=== PATIENT | female | born 1995 | race Caucasian/White ===

== ENCOUNTER 2016-10-05 23:25 | Outpatient (CLI) | payer MEDICAID | END 2016-10-06 01:58 | disposition home or self-care (01) | LOC: MW.OBCHECK 23:25 → MW.OB 23:25 → MW.OBCHECK 10-06 01:58 | PROVIDERS: ATTEND Obstetrics & Gynecology | DX: O26.893 Other specified pregnancy related conditions, third trimester (principal); R10.9 Unspecified abdominal pain | CPT/HCPCS: 59025 ==

== ENCOUNTER 2016-10-13 21:55 | Inpatient (IN) | payer BC, MEDICAID ==
[2016-10-13] MEDS ORDERED: Sodium Chloride 0.9% 2.5 ML Syringe FLUSH PRN (22:08)
[2016-10-13] MEDS ORDERED: Terbutaline 1 MG/ML SDV SUBCUT PRN (22:08)
[2016-10-13] MEDS ORDERED: Lidocaine 1% 50 ML MDV INJECT PRN (22:08)
[2016-10-13] MEDS ORDERED: Nalbuphine 10 MG/1 ML Vial IVPUSH PRN (22:08)
[2016-10-13] MEDS ORDERED: Methylergonovine 0.2 MG/1 ML Amp IM PRN (22:08)
[2016-10-13] MEDS ORDERED: Sodium Chloride 0.9% 10 ML Syringe FLUSH PRN (22:08)
[2016-10-13] MEDS ORDERED: Butorphanol 1 MG/ML SDV IVPUSH PRN (22:08)
[2016-10-13] MEDS ORDERED: Misoprostol 200 MCG Tab PO PRN (22:08)
[2016-10-13] MEDS ORDERED: Carboprost Tromethamine 250 MCG/1 ML Amp IM PRN (22:08)
[2016-10-13] MEDS ORDERED: Water For Irrigation,Sterile 1,000 ML Container IRR PRN (22:08)
[2016-10-13] MEDS ORDERED: Oxytocin/Lactated Ringers 30 UNIT/500 ML BAG IV SCH ×2 (22:15)
[2016-10-13] MEDS ORDERED: Misoprostol 25 MCG (1/4 of 100 MCG) Tab VAG SCH (22:15)
[2016-10-14] MEDS: Misoprostol 25 MCG (1/4 of 100 MCG) Tab VAG PRN ×2 (04:01→08:12)
[2016-10-14] MEDS: Lactated Ringers 1,000 ML IV SCH ×2 (12:43→15:05)
[2016-10-14] MEDS ORDERED: fentaNYL 100 MCG/2 ML SDV ONE (14:37)
[2016-10-14] MEDS ORDERED: Ropivacaine HCl/PF 100 ML ONE ×2 (14:38→22:40)
--- NOTE | 2016-10-14 15:38 | PCM.PREANE ---
Preanesthetic Assessment - Anesthesia/Transfusion/Family Hx Anesthesia History: Prior Anesthesia Without Reaction Family History of Anesthesia Reaction: No Transfusion History: No Prior Transfusion(s) Intubation History: Unknown - Review of Systems General: No Symptoms Pulmonary: No Symptoms Cardiovascular: No Symptoms Gastrointestinal: No symptoms Neurological: No Symptoms Other: Reports: Anxiety - Physical Assessment NPO Status Date: 10/14/16 NPO Status Time: 15:36 (sips/chips) Height: 5 ft 8 in Weight: 223 lb ASA Class: 2 Mental Status: Alert & Oriented x3 Airway Class: Mallampati = 2 Dentition: Reports: Normal Dentition Thyro-Mental Finger Breadths: 3 Mouth Opening Finger Breadths: 3 ROM/Head Extension: Full Lungs: Clear to auscultation, Normal respiratory effort Cardiovascular: Regular Rate, Regular Rhythm - Lab Values: Laboratory Last Values WBC 15.76 K/uL (4.0-11.0) H 10/13/16 22:33 RBC 3.57 M/uL (4.30-5.90) L 10/13/16 22:33 Hgb 9.9 g/dL (12.0-16.0) L 10/13/16 22:33 Hct 30.0 % (36.0-46.0) L 10/13/16 22:33 MCV 84.0 fL (80.0-98.0) 10/13/16 22:33 MCH 27.7 pg (27.0-32.0) 10/13/16 22:33 MCHC 33.0 g/dL (31.0-37.0) 10/13/16 22:33 RDW Std Deviation 43.8 fl (28.0-62.0) 10/13/16 22:33 RDW Coeff of Manan 14 % (11.0-15.0) 10/13/16 22:33 Plt Count 272 K/uL (150-400) 10/13/16 22:33 MPV 10.10 fL (7.40-12.00) 10/13/16 22:33 Nucleated RBC % 0.0 /100WBC 10/13/16 22:33 Nucleated RBCs # 0 K/uL 10/13/16 22:33 Blood Type O POSITIVE 10/13/16 22:33 Antibody Screen NEGATIVE 10/13/16 22:33 - Allergies Allergies/Adverse Reactions: Allergies Allergy/AdvReac Type Severity Reaction Status Date / Time No Known Allergies Allergy Verified 11/25/15 20:00 - Blood Blood Available: No Product(s) Available: None - Anesthesia Plan Free Text/Narrative:: Labor Epidural - Acknowledgements Anesthesia Type Planned: Epidural Pt an Appropriate Candidate for the Planned Anesthesia: Yes Alternatives and Risks of Anesthesia Discussed w Pt/Guardian: Yes Pt/Guardian Understands and Agrees with Anesthesia Plan: Yes PreAnesthesia Questionnaire HEENT History: Reports: None Cardiovascular History: Reports: None Respiratory History: Reports: None Gastrointestinal History: Reports: None Genitourinary History: Reports: None 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 Musculoskeletal History: Reports: None Neurological History: Reports: None Psychiatric History: Reports: Anxiety, Depression Endocrine/Metabolic History: Reports: None, Obesity/BMI 30+ Hematologic History: Reports: None Immunologic History: Reports: None Oncologic (Cancer) History: Reports: None Dermatologic History: Reports: None - Infectious Disease History Infectious Disease History: Reports: Mononucleosis - Past Surgical History Head Surgeries/Procedures: Reports: None HEENT Surgical History: Reports: Adenoidectomy, Oral surgery, Tonsillectomy Dermatological Surgical History: Reports: None - SUBSTANCE USE Smoking Status *Q: Former Smoker Tobacco Use Within Last Twelve Months: Cigarettes Second Hand Smoke Exposure: Yes Recreational Drug Use History: No - HOME MEDS Home Medications: Home Meds . [No Known Home Meds] 11/25/15 [History] - CURRENT (IN HOUSE) MEDS Current Meds: Current Medications Butorphanol Tartrate (Stadol) 1 mg IVPUSH Q1H PRN PRN Reason: Pain Carboprost Tromethamine (Hemabate Ds) 250 mcg IM ASDIRECTED PRN PRN Reason: Post Hemorrhage Lactated Ringer's (Ringers, Lactated) 1,000 mls @ 150 mls/hr IV ASDIRECTED MOY Last Admin: 10/14/16 15:05 Dose: 999 mls/hr Oxytocin/Lactated Ringer's (Pitocin In Lr 30 Units/500 Ml) 30 unit in 500 mls @ 2 mls/hr IV TITRATE MOY; 2 MUNITS/MIN PRN Reason: Protocol Last Titration: 10/14/16 15:20 Dose: 6 munits/min, 6 mls/hr Lidocaine HCl (Xylocaine 1%) 50 ml INJECT .ONCE PRN PRN Reason: Laceration repair Methylergonovine Maleate (Methergine) 0.2 mg IM ASDIRECTED PRN PRN Reason: Post Hemorrhage Misoprostol (Cytotec) 200 mcg PO .ONCE PRN PRN Reason: Post Hemorrhage Misoprostol (Cytotec) 25 mcg VAG .ONCE MOY Last Admin: 10/13/16 23:14 Dose: 25 mcg Misoprostol (Cytotec) 25 mcg VAG Q4H PRN PRN Reason: Cervical Ripening Stop: 10/15/16 02:09 Last Admin: 10/14/16 08:12 Dose: 25 mcg Sodium Chloride (Saline Flush) 10 ml FLUSH ASDIRECTED PRN PRN Reason: Keep Vein Open Sodium Chloride (Saline Flush) 2.5 ml FLUSH ASDIRECTED PRN PRN Reason: Keep Vein Open Sterile Water (Sterile Water For Irrigation) 1,000 ml IRR ASDIRECTED PRN PRN Reason: delivery Terbutaline Sulfate (Brethine) 0.25 mg SUBCUT ASDIRECTED PRN PRN Reason: Tacysystole Discontinued Medications Fentanyl (Sublimaze) Confirm Administered Dose 100 mcg .ROUTE .STK-MED ONE Stop: 10/14/16 14:38 Oxytocin/Lactated Ringer's (Pitocin In Lr 30 Units/500 Ml) 30 unit in 500 mls @ 999 mls/hr IV TITRATE MOY; 999 MUNITS/MIN PRN Reason: Protocol Stop: 10/13/16 22:46 Ropivacaine (Naropin 0.2%) Confirm Administered Dose 100 mls @ as directed .ROUTE .STK-MED ONE Stop: 10/14/16 14:39 Nalbuphine HCl (Nubain) 10 mg IVPUSH Q1H PRN PRN Reason: Pain (severe 7-10) Stop: 10/14/16 00:09
[2016-10-14] MEDS: Ondansetron 4 MG/2 ML SDV IVPUSH PRN (18:13)
[2016-10-15] MEDS ORDERED: Ibuprofen 800 MG Tab PO PRN (00:46)
[2016-10-15] MEDS ORDERED: Acetaminophen 500 MG Tab PO PRN ×2 (00:46)
[2016-10-15] MEDS ORDERED: Witch Hazel Medicated Pads 40/Jar TOP PRN (00:46)
[2016-10-15] MEDS ORDERED: Bisacodyl 10 MG Supp RECTAL PRN (00:46)
[2016-10-15] MEDS ORDERED: Docusate Sodium 100 MG Cap PO PRN (00:46)
[2016-10-15] MEDS ORDERED: Lanolin 100% Cream 7 GM Tube TOP PRN (00:46)
[2016-10-15] MEDS ORDERED: Ibuprofen 400 MG Tab PO PRN (00:46)
[2016-10-15] MEDS ORDERED: Benzocaine/Menthol 20%-0.5% Spray 78 GM Cannister TOP PRN (00:46)
[2016-10-15] MEDS ORDERED: oxyCODONE 5 MG Tab PO PRN (00:46)
[2016-10-15] MEDS: Ondansetron 4 MG/2 ML SDV IVPUSH PRN (00:49)
--- NOTE | 2016-10-15 05:09 | OR ---
SURGEON: Lisette Kauffman MD DATE OF PROCEDURE: 10/15/2016 PREOPERATIVE DIAGNOSES: 1. Intrauterine at 40 weeks and 6 days. 2. Postdates induction of labor. POSTOPERATIVE DIAGNOSES: 1. Intrauterine at 40 weeks and 6 days. 2. Postdates induction of labor. 3. Delivered. PROCEDURE: 1. Spontaneous vaginal delivery. 2. Repair of perineal laceration. ANESTHESIA: Epidural. ESTIMATED BLOOD LOSS: 300 mL. COMPLICATIONS: None. DISPOSITION: Mother and baby stable in Labor and Delivery room, [facility]. FINDINGS: Male , weight 4090 g, score 7 and 9 at 1 and 5 minutes respectively. Grossly normal placenta with 3-vessel cord. Second-degree perineal laceration. BRIEF HISTORY: The patient is a 21-year-old, G2, P1, who has had an uncomplicated care, was admitted at 40 weeks and 5 days gestation for a postdate induction of labor. GBS negative. She received three doses of Cytotec 25 mcg, each, 4 hours apart, vaginally for cervical ripening. Artificial rupture of membranes was performed at about 12 noon on that , she was 3 cm dilated at that time and oxytocin infusion was commenced. Thereafter she made steady progress and became fully dilated at about 10 p.m. on the and commenced active pushing. She pushed a little over an hour and brought the head down to a +4 station. She was set up for delivery in modified dorsal lithotomy position. The heart tracing remained category 1 tracing with occasional second stage tracing of category 2 during active pushing. NARRATIVE: She had a spontaneous vaginal delivery of a live male in direct occipital anterior position, no nuchal cord with terminal meconium was noted at delivery. Anterior and posterior shoulders and the rest of the baby were delivered without difficulty. Baby was delivered onto the maternal abdomen with the nursery nurse attending to him. The baby became vigorous with stimulation and cried spontaneously. Cord was doubly clamped, after it had ceased pulsating and was cut by the father of the baby. Cord blood and gas samples were obtained. With delivery of the oxytocin infusion was converted to a titration for active management of third stage of labor. Placenta was delivered by controlled cord traction appeared to be complete and intact. Examination of the perineum revealed second-degree midline laceration without an extension. The patient was noted to be trickling slowly, uterine massage was performed. Uterus firmed up, but in between massages became atonic with continual trickle, so the patient received one dose of Methergine IM after which the uterus contracted nicely. The second-degree laceration was repaired with 2-0 Vicryl suture in three layers and was hemostatic post repair. Uterine massage was performed again and the uterus was found to be well contracted. The patient tolerated the procedure well. Sponge, instrument, and needle counts were correct at the end of the delivery. DANNY / LISSY /[id number] MTDD
--- NOTE | 2016-10-15 21:17 | PCM48HPAN ---
Post Anesthesia Note - EVALUATION WITHIN 48HRS OF ANESTHETIC Vital Signs in Normal Range: Yes Patient Participated in Evaluation: Yes Respiratory Function Stable: Yes Airway Patent: Yes Cardiovascular Function Stable: Yes Hydration Status Stable: Yes Pain Control Satisfactory: Yes Nausea and Vomiting Control Satisfactory: Yes Mental Status Recovered: Yes - COMMENTS/OBSERVATIONS Free Text/Narrative:: Pt reports full return of sensation and motor movement to lower extremities. No complaints or problems from epidural.
--- NOTE | 2016-10-16 08:11 | PCM.PNPP ---
[id number] Status: Reports: pain controlled, tolerating diet, ambulating, urinating - Review of Systems General: Denies: Fever, Weakness, Fatigue Pulmonary: Denies: shortness of breath, pleuritic chest pain, cough Cardiovascular: Denies: Chest Pain, Palpitations, Dyspnea on Exertion Psychiatric: Reports: no symptoms - General Info Date of Service: 10/16/16 - Patient Data Vital Signs - most recent: Last Vital Signs Temp 36.6 C 10/16/16 04:02 Pulse 78 10/16/16 04:02 Resp 15 10/16/16 04:02 BP 98/54 L 10/16/16 04:02 Pulse Ox 98 10/16/16 04:02 Weight - most recent: 223 lb Lab Results - last 24 hrs: Laboratory Results - last 24 hr 10/16/16 Range/Units 06:25 Hgb 8.1 L (12.0-16.0) g/dL Hct 24.7 L (36.0-46.0) % Med Orders - Current: Current Medications Acetaminophen (Tylenol Extra Strength) 500 mg PO Q4H PRN PRN Reason: Pain Acetaminophen (Tylenol Extra Strength) 1,000 mg PO Q4H PRN PRN Reason: Pain Benzocaine/Menthol (Dermoplast Pain Relief 20%-0.5% Alleman) 78 gm TOP ASDIRECTED PRN PRN Reason: Perineal Comfort Measure Last Admin: 10/15/16 21:07 Dose: 1 can Bisacodyl (Dulcolax) 10 mg RECTAL .ONCE PRN PRN Reason: Constipation Docusate Sodium (Colace) 100 mg PO BID PRN PRN Reason: Constipation Last Admin: 10/15/16 21:07 Dose: 100 mg Emollient Ointment (Lansinoh Hpa) 0 gm TOP ASDIRECTED PRN PRN Reason: Sore Nipples Ibuprofen (Motrin) 400 mg PO Q4H PRN PRN Reason: Pain Ibuprofen (Motrin) 800 mg PO Q6H PRN PRN Reason: Pain Oxycodone HCl (Oxycodone) 5 mg PO Q2H PRN PRN Reason: Pain Witch Priscila (Tucks) 1 pad TOP ASDIRECTED PRN PRN Reason: comfort care Last Admin: 10/15/16 21:08 Dose: 1 container Discontinued Medications Butorphanol Tartrate (Stadol) 1 mg IVPUSH Q1H PRN PRN Reason: Pain Stop: 10/15/16 00:45 Carboprost Tromethamine (Hemabate Ds) 250 mcg IM ASDIRECTED PRN PRN Reason: Post Hemorrhage Fentanyl (Sublimaze) Confirm Administered Dose 100 mcg .ROUTE .STK-MED ONE Stop: 10/14/16 14:38 Last Admin: 10/15/16 22:13 Dose: Not Given Lactated Ringer's (Ringers, Lactated) 1,000 mls @ 150 mls/hr IV ASDIRECTED MOY Last Admin: 10/14/16 15:05 Dose: 999 mls/hr Oxytocin/Lactated Ringer's (Pitocin In Lr 30 Units/500 Ml) 30 unit in 500 mls @ 999 mls/hr IV TITRATE MOY; 999 MUNITS/MIN PRN Reason: Protocol Stop: 10/13/16 22:46 Oxytocin/Lactated Ringer's (Pitocin In Lr 30 Units/500 Ml) 30 unit in 500 mls @ 2 mls/hr IV TITRATE MOY; 2 MUNITS/MIN PRN Reason: Protocol Last Titration: 10/14/16 21:26 Dose: 26 munits/min, 26 mls/hr Ropivacaine (Naropin 0.2%) Confirm Administered Dose 100 mls @ as directed .ROUTE .ST-MED ONE Stop: 10/14/16 14:39 Last Admin: 10/15/16 22:13 Dose: Not Given Ropivacaine (Naropin 0.2%) Confirm Administered Dose 100 mls @ as directed .ROUTE .ST-MED ONE Stop: 10/14/16 22:41 Last Admin: 10/15/16 22:13 Dose: Not Given Lidocaine HCl (Xylocaine 1%) 50 ml INJECT .ONCE PRN PRN Reason: Laceration repair Methylergonovine Maleate (Methergine) 0.2 mg IM ASDIRECTED PRN PRN Reason: Post Hemorrhage Last Admin: 10/15/16 00:28 Dose: 0.2 mg Misoprostol (Cytotec) 200 mcg PO .ONCE PRN PRN Reason: Post Hemorrhage Misoprostol (Cytotec) 25 mcg VAG .ONCE MOY Last Admin: 10/13/16 23:14 Dose: 25 mcg Misoprostol (Cytotec) 25 mcg VAG Q4H PRN PRN Reason: Cervical Ripening Stop: 10/15/16 02:09 Last Admin: 10/14/16 08:12 Dose: 25 mcg Nalbuphine HCl (Nubain) 10 mg IVPUSH Q1H PRN PRN Reason: Pain (severe 7-10) Stop: 10/14/16 00:09 Ondansetron HCl (Zofran) 4 mg IVPUSH Q6H PRN PRN Reason: Nausea Last Admin: 10/15/16 00:49 Dose: 4 mg Sodium Chloride (Saline Flush) 10 ml FLUSH ASDIRECTED PRN PRN Reason: Keep Vein Open Sodium Chloride (Saline Flush) 2.5 ml FLUSH ASDIRECTED PRN PRN Reason: Keep Vein Open Sterile Water (Sterile Water For Irrigation) 1,000 ml IRR ASDIRECTED PRN PRN Reason: delivery Last Admin: 10/15/16 00:15 Dose: 1,000 ml Terbutaline Sulfate (Brethine) 0.25 mg SUBCUT ASDIRECTED PRN PRN Reason: Tacysystole - Interaction Infant Disposition, : in Room with Family Infant Feeding: Attempted ; Nursed Fair/Poor, Encouraged to Breastfeed Support Person: Mother, Significant Other - Recovery Exam Fundal Tone: Firm Fundal Level: 1 Fingerbreadths Below Umbilicus Fundal Placement: Midline Lochia Amount: Scant Lochia Color: Rubra/Red Perineum Description: Other (see below) Other Perinuem Description: 2nd degree laceration with repair. Episiotomy/Laceration: Approximated Bladder Status: Voiding Urinary Elimination: Voided - Exam General: alert Lungs: Clear to auscultation, Normal respiratory effort Cardiovascular: Regular Rate, Regular Rhythm Abdomen: bowel sounds present Extremities: edema (trace) Psy/Mental Status: alert, normal affect, normal mood - Problem List & Annotations (1) Vaginal delivery SNOMED Code(s): 848084414 Code(s): O80 - ENCOUNTER FOR FULL-TERM UNCOMPLICATED DELIVERY Status: Acute Current Visit: Yes - Problem List Review Problem List Initiated/Reviewed/Updated: Yes - Assessment Assessment:: PPD #1 from . Minimal and lochia. Hemoglobin stable at 8.1. Vitals WNL. Patient denies dizziness. Patient will start iron supplementation. Discharge home today. - Plan Plan:: Discharge instructions reviewed. Nothing in the vagina for 6 weeks. Continue PNV while breast feeding. Will start iron supplementation. Patient can use OTC ibuprofen/tylenol as needed for pain. Instructed patient to call if she develops fever greater than 101 or bleeding through a large pad an hour. F/U with [facility] in 6 weeks. <Lisette Kauffman - Last Filed: 10/16/16 08:39> - Patient Data Vital Signs - most recent: Last Vital Signs Temp 36.3 C 10/16/16 08:13 Pulse 70 10/16/16 08:13 Resp 16 10/16/16 08:13 BP 100/56 L 10/16/16 08:13 Pulse Ox 98 10/16/16 08:13 Lab Results - last 24 hrs: Laboratory Results - last 24 hr 10/16/16 Range/Units 06:25 Hgb 8.1 L (12.0-16.0) g/dL Hct 24.7 L (36.0-46.0) % Med Orders - Current: Current Medications Acetaminophen (Tylenol Extra Strength) 500 mg PO Q4H PRN PRN Reason: Pain Acetaminophen (Tylenol Extra Strength) 1,000 mg PO Q4H PRN PRN Reason: Pain Benzocaine/Menthol (Dermoplast Pain Relief 20%-0.5% Alleman) 78 gm TOP ASDIRECTED PRN PRN Reason: Perineal Comfort Measure Last Admin: 10/15/16 21:07 Dose: 1 can Bisacodyl (Dulcolax) 10 mg RECTAL .ONCE PRN PRN Reason: Constipation Docusate Sodium (Colace) 100 mg PO BID PRN PRN Reason: Constipation Last Admin: 10/15/16 21:07 Dose: 100 mg Emollient Ointment (Lansinoh Hpa) 0 gm TOP ASDIRECTED PRN PRN Reason: Sore Nipples Ibuprofen (Motrin) 400 mg PO Q4H PRN PRN Reason: Pain Ibuprofen (Motrin) 800 mg PO Q6H PRN PRN Reason: Pain Oxycodone HCl (Oxycodone) 5 mg PO Q2H PRN PRN Reason: Pain Witch Priscila (Tucks) 1 pad TOP ASDIRECTED PRN PRN Reason: comfort care Last Admin: 10/15/16 21:08 Dose: 1 container Discontinued Medications Butorphanol Tartrate (Stadol) 1 mg IVPUSH Q1H PRN PRN Reason: Pain Stop: 10/15/16 00:45 Carboprost Tromethamine (Hemabate Ds) 250 mcg IM ASDIRECTED PRN PRN Reason: Post Hemorrhage Fentanyl (Sublimaze) Confirm Administered Dose 100 mcg .ROUTE .STK-MED ONE Stop: 10/14/16 14:38 Last Admin: 10/15/16 22:13 Dose: Not Given Lactated Ringer's (Ringers, Lactated) 1,000 mls @ 150 mls/hr IV ASDIRECTED MOY Last Admin: 10/14/16 15:05 Dose: 999 mls/hr Oxytocin/Lactated Ringer's (Pitocin In Lr 30 Units/500 Ml) 30 unit in 500 mls @ 999 mls/hr IV TITRATE MOY; 999 MUNITS/MIN PRN Reason: Protocol Stop: 10/13/16 22:46 Oxytocin/Lactated Ringer's (Pitocin In Lr 30 Units/500 Ml) 30 unit in 500 mls @ 2 mls/hr IV TITRATE MOY; 2 MUNITS/MIN PRN Reason: Protocol Last Titration: 10/14/16 21:26 Dose: 26 munits/min, 26 mls/hr Ropivacaine (Naropin 0.2%) Confirm Administered Dose 100 mls @ as directed .ROUTE .STK-MED ONE Stop: 10/14/16 14:39 Last Admin: 10/15/16 22:13 Dose: Not Given Ropivacaine (Naropin 0.2%) Confirm Administered Dose 100 mls @ as directed .ROUTE .STK-MED ONE Stop: 10/14/16 22:41 Last Admin: 10/15/16 22:13 Dose: Not Given Lidocaine HCl (Xylocaine 1%) 50 ml INJECT .ONCE PRN PRN Reason: Laceration repair Methylergonovine Maleate (Methergine) 0.2 mg IM ASDIRECTED PRN PRN Reason: Post Hemorrhage Last Admin: 10/15/16 00:28 Dose: 0.2 mg Misoprostol (Cytotec) 200 mcg PO .ONCE PRN PRN Reason: Post Hemorrhage Misoprostol (Cytotec) 25 mcg VAG .ONCE MOY Last Admin: 10/13/16 23:14 Dose: 25 mcg Misoprostol (Cytotec) 25 mcg VAG Q4H PRN PRN Reason: Cervical Ripening Stop: 10/15/16 02:09 Last Admin: 10/14/16 08:12 Dose: 25 mcg Nalbuphine HCl (Nubain) 10 mg IVPUSH Q1H PRN PRN Reason: Pain (severe 7-10) Stop: 10/14/16 00:09 Ondansetron HCl (Zofran) 4 mg IVPUSH Q6H PRN PRN Reason: Nausea Last Admin: 10/15/16 00:49 Dose: 4 mg Sodium Chloride (Saline Flush) 10 ml FLUSH ASDIRECTED PRN PRN Reason: Keep Vein Open Sodium Chloride (Saline Flush) 2.5 ml FLUSH ASDIRECTED PRN PRN Reason: Keep Vein Open Sterile Water (Sterile Water For Irrigation) 1,000 ml IRR ASDIRECTED PRN PRN Reason: delivery Last Admin: 10/15/16 00:15 Dose: 1,000 ml Terbutaline Sulfate (Brethine) 0.25 mg SUBCUT ASDIRECTED PRN PRN Reason: Tacysystole - Infant Interaction Infant Feeding: Other (see below) (Pumping well and bottle feeding baby) - Assessment Assessment:: Agree with above assessment - Plan Plan:: Patient reviewed independently by me, agree with above assessment and plan
[2016-10-16 08:15] VITALS: BP 100/56
== END 2016-10-16 14:00 | disposition home or self-care (01) | DRG 775 ==
LOC: MW.OBCHECK 21:55 → MW.OB 21:57 → MW.OBCHECK 22:10 → MW.OB 22:10 → OBSVTOIN 10-15 00:15 → MW.OB 10-15 03:07
PROVIDERS: ADMIT Obstetrics & Gynecology; ATTEND Obstetrics & Gynecology
PROC: 10E0XZZ Delivery of Products of Conception, External Approach (ICD-10-PCS; principal; 2016-10-15)
PROC: 0KQM0ZZ Repair Perineum Muscle, Open Approach (ICD-10-PCS; 2016-10-15)
PROC: 3E0P7GC Introduction of Other Therapeutic Substance into Female Reproductive, Via Natural or Artificial Opening (ICD-10-PCS; 2016-10-15)
DX: O48.0 Post-term pregnancy (principal); O70.1 Second degree perineal laceration during delivery; Z3A.40 40 weeks gestation of pregnancy; Z37.0 Single live birth
CPT/HCPCS: 01967; 36415; 59025; 85014; 85018; 85027; 86850; 86900; 86901; A9270-GY; J2210; J2405; J2795; J3010; J7120

== ENCOUNTER 2017-01-11 06:33 | Emergency (ER) | payer MEDICAID ==
[2017-01-11] MEDS ORDERED: Ondansetron 4 MG/2 ML SDV IVPUSH ONE ×2 (06:49→08:32)
[2017-01-11] MEDS ORDERED: Sodium Chloride 0.9% 2.5 ML Syringe FLUSH PRN (07:00)
[2017-01-11] MEDS ORDERED: Sodium Chloride 0.9% 10 ML Syringe FLUSH PRN (07:00)
[2017-01-11] MEDS ORDERED: Sodium Chloride 0.9% 1,000 ML IV ONE (07:05)
[2017-01-11] MEDS ORDERED: Pantoprazole 40 MG Vial IVPUSH ONE (07:05)
[2017-01-11] MEDS ORDERED: HYDROmorphone 2 MG/ML Syringe IVPUSH ONE (07:05)
--- NOTE | 2017-01-11 07:08 | EDM.PDOC ---
ED HPI GENERAL MEDICAL PROBLEM - General Chief Complaint: Abdominal Pain Stated Complaint: GALL BLADDER PAINS Time Seen by Provider: 01/11/17 07:00 - History of Present Illness INITIAL COMMENTS - FREE TEXT/NARRATIVE: HISTORY AND PHYSICAL: History of present illness: The patient is a 21-year-old female with no significant past medical history or past surgical history who presents with recurrent episodes of epigastric and right upper abdominal pain over the last one year. She says she get episodes of this pain at least twice a week and it may or may not be food related. The patient was seen at [facility] ER several weeks ago--- she thought it was 3 weeks ago and mom thought it was 5 weeks ago--and says she had some imaging which she thinks is a CAT scan but maybe an ultrasound and labs and was told that she had gallstones and needed follow-up. She was given nothing for the pain. The patient presents saying that this pain episode today started at 3 AM it is epigastric and slightly radiating to the right and is associated with nausea but no vomiting or diarrhea. She has not had fevers chills chest pain or shortness of breath. The patient took some ibuprofen only for pain and she had nothing else. She has not been taking any antacids and has been trying to watch her diet. Review of systems: As per history of present illness and below otherwise all systems reviewed and negative. Past medical history: As per history of present illness and as reviewed below otherwise noncontributory. Surgical history: As per history of present illness and as reviewed below otherwise noncontributory. Social history: No reported history of drug or alcohol abuse. Family history: As per history of present illness and as reviewed below otherwise noncontributory. Physical exam: General: Well-developed mildly overweight female who is nontoxic and looks uncomfortable in the room. Vital signs were noted by me HEENT: Atraumatic, normocephalic, pupils reactive, negative for conjunctival pallor or scleral icterus, mucous membranes moist, throat clear, neck supple, nontender, trachea midline. Lungs: Clear to auscultation, breath sounds equal bilaterally, chest nontender. Heart: S1S2, regular, negative for clicks, rubs, or JVD. Abdomen: Soft, nondistended, mild tenderness on deep palpation in the epigastrium and slightly in the right upper outer and but not in the lower quadrants. Bowel sounds are hypoactive Negative for masses or hepatosplenomegaly. Negative for costovertebral tenderness. Pelvis: Stable nontender. Genitourinary: Deferred. Rectal: Deferred. Extremities: Atraumatic, negative for cords or calf pain. Neurovascular unremarkable. Neuro: Awake, alert, oriented. Cranial nerves II through XII unremarkable. Cerebellum unremarkable. Motor and sensory unremarkable throughout. Exam nonfocal. Diagnostics: CBC CMP amylase lipase test GB ultrasound Therapeutics: IV fluids Zofran Dilaudid Protonix [id number]: Testing results, US and the clinical presentation was discussed with our surgeon production line worker Dr. Sandoval. He said that at this point and follow her in the clinic this week and we will call and schedule an appointment. The patient says the pain is very tolerable and I will give her pain medications and Zofran for home and advised her on dietary restrictions. I will also advise on reasons to return to the ER Patient is aware of all testing results and her pain is very minimal area I will give her Zofran and [place] for home. She is aware of her clinic appointment which is scheduled for this Wednesday at 2:[address] Sandoval. Strictly advised her on reasons to return to the ER Impression: Biliary colic/cholelithiasis Definitive disposition and diagnosis as appropriate pending reevaluation and review of above. Treatments GRAPE CRUSHER: Reports: NSAIDS Abdomen Pain Score (Numeric/FACES): 6 - Related Data Allergies Allergy/AdvReac Type Severity Reaction Status Date / Time No Known Allergies Allergy Verified 01/11/17 06:42 Home Meds: Home Meds . 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 Musculoskeletal History: Reports: None Neurological History: Reports: None Psychiatric History: Reports: Anxiety, Depression Endocrine/Metabolic History: Reports: None, Obesity/BMI 30+ Hematologic History: Reports: None Immunologic History: Reports: None Oncologic (Cancer) History: Reports: None Dermatologic History: Reports: None - Infectious Disease History Infectious Disease History: Reports: Mononucleosis - Past Surgical History HEENT Surgical History: Reports: Adenoidectomy, Oral Surgery, Tonsillectomy Social & Family History - Family History Family Medical History: Noncontributory Respiratory: Reports: Asthma : Reports: Dialysis, UTI, Recurrent, Other (See Below) Other Family History: Kidney stones. OBGYN: Reports: , Recurrent Spontaneous , Other (See Below) Other OBGYN Family History: Ovarian cysts. Musculoskeletal: Reports: Other (See Below) Other Musculoskeletal Family History: Scoliosis. Neurological: Reports: Migraines Psychiatric: Reports: Depression Endocrine/Metabolic: Reports: Diabetes, type II Oncologic: Reports: Skin - Tobacco Use Smoking Status *Q: Former Smoker Years of Tobacco use: 5 Packs/Tins Daily: 0.5 Used Tobacco, but Quit: Yes Month Tobacco Last Used: January 2016 Second Hand Smoke Exposure: Yes - Caffeine Use Caffeine Use: Reports: None - Recreational Drug Use Recreational Drug Use: No ED ROS GENERAL - Review of Systems Review Of Systems: ROS reveals no pertinent complaints other than HPI. ED EXAM, GENERAL - Physical Exam Exam: See Below (see dictation) Course - Vital Signs Last Recorded V/S: Last Vital Signs Temp 36.1 C 01/11/17 06:42 Pulse 86 01/11/17 06:42 Resp 16 01/11/17 06:42 BP 132/78 01/11/17 06:42 Pulse Ox 98 01/11/17 06:42 - Orders/Labs/Meds Orders: Active Orders 24 hr Category Date Time Status Sodium Chloride 0.9% [Saline Flush] Med 01/11/17 07:00 Active 10 ml FLUSH ASDIRECTED PRN Sodium Chloride 0.9% [Saline Flush] Med 01/11/17 07:00 Active 2.5 ml FLUSH ASDIRECTED PRN Saline Lock Insert [OM.PC] Stat Oth 01/11/17 07:00 Ordered Medication Orders Sodium Chloride (Saline Flush) 10 ml FLUSH ASDIRECTED PRN PRN Reason: Keep Vein Open Sodium Chloride (Saline Flush) 2.5 ml FLUSH ASDIRECTED PRN PRN Reason: Keep Vein Open Labs: Laboratory Tests 01/11/17 01/11/17 01/11/17 Range/Units 06:44 06:44 06:44 WBC 6.95 (4.0-11.0) K/uL RBC 4.62 (4.30-5.90) M/uL Hgb 11.8 L (12.0-16.0) g/dL Hct 37.3 (36.0-46.0) % MCV 80.7 (80.0-98.0) fL MCH 25.5 L (27.0-32.0) pg MCHC 31.6 (31.0-37.0) g/dL RDW Std Deviation 43.3 (28.0-62.0) fl RDW Coeff of Manan 15 (11.0-15.0) % Plt Count 319 (150-400) K/uL MPV 9.50 (7.40-12.00) fL Neut % (Auto) 57.9 (48.0-80.0) % Lymph % (Auto) 29.6 (16.0-40.0) % Rains % (Auto) 7.8 (0.0-15.0) % Eos % (Auto) 4.3 (0.0-7.0) % Baso % (Auto) 0.4 (0.0-1.5) % Neut # (Auto) 4.0 (1.4-5.7) K/uL Lymph # (Auto) 2.1 (0.6-2.4) K/uL Rains # (Auto) 0.5 (0.0-0.8) K/uL Eos # (Auto) 0.3 (0.0-0.7) K/uL Baso # (Auto) 0.0 (0.0-0.1) K/uL Nucleated RBC % 0.0 /100WBC Nucleated RBCs # 0 K/uL Sodium 140 (136-146) mmol/L Potassium 3.6 (3.5-5.1) mmol/L Chloride 107 (98-110) mmol/L Carbon Dioxide 24 (21-31) mmol/L BUN 11 (6.0-23.0) mg/dL Creatinine 0.8 (0.6-1.5) mg/dL Est Cr Clr Drug Dosing 112.21 mL/min Estimated GFR (MDRD) > 60.0 ml/min Glucose 90 (60-110) mg/dL Calcium 9.5 (8.8-10.8) mg/dL Total Bilirubin 0.2 (0.1-1.5) mg/dL AST 23 (5-40) IU/L ALT 30 (8-54) IU/L Alkaline Phosphatase 90 (40-150) Total Protein 7.0 (6.0-8.0) g/dL Albumin 4.0 (3.5-5.0) g/dL Globulin 3.0 (2.0-3.5) g/dL Albumin/Globulin Ratio 1.3 (1.3-2.8) Amylase (10-90) U/L Lipase 25 (7-80) U/L HCG, Qual NEGATIVE (NEG) Urine Color Urine Appearance Urine pH (5.0-8.0) Ur Specific Kingsley (1.001-1.035) Urine Protein (NEGATIVE) mg/dL Urine Glucose (UA) (NEGATIVE) mg/dL Urine Ketones (NEGATIVE) mg/dL Urine Occult Blood (NEGATIVE) Urine Nitrite (NEGATIVE) Urine Bilirubin (NEGATIVE) Urine Urobilinogen (<2.0) EU/dL Ur Leukocyte Esterase (NEGATIVE) Urine RBC (0-2/HPF) Urine WBC (0-5/HPF) Ur Epithelial Cells (NONE-FEW) Urine Bacteria (NEGATIVE) 01/11/17 01/11/17 Range/Units 06:44 06:50 WBC (4.0-11.0) K/uL RBC (4.30-5.90) M/uL Hgb (12.0-16.0) g/dL Hct (36.0-46.0) % MCV (80.0-98.0) fL MCH (27.0-32.0) pg MCHC (31.0-37.0) g/dL RDW Std Deviation (28.0-62.0) fl RDW Coeff of Manan (11.0-15.0) % Plt Count (150-400) K/uL MPV (7.40-12.00) fL Neut % (Auto) (48.0-80.0) % Lymph % (Auto) (16.0-40.0) % Rains % (Auto) (0.0-15.0) % Eos % (Auto) (0.0-7.0) % Baso % (Auto) (0.0-1.5) % Neut # (Auto) (1.4-5.7) K/uL Lymph # (Auto) (0.6-2.4) K/uL Rains # (Auto) (0.0-0.8) K/uL Eos # (Auto) (0.0-0.7) K/uL Baso # (Auto) (0.0-0.1) K/uL Nucleated RBC % /100WBC Nucleated RBCs # K/uL Sodium (136-146) mmol/L Potassium (3.5-5.1) mmol/L Chloride (98-110) mmol/L Carbon Dioxide (21-31) mmol/L BUN (6.0-23.0) mg/dL Creatinine (0.6-1.5) mg/dL Est Cr Clr Drug Dosing mL/min Estimated GFR (MDRD) ml/min Glucose (60-110) mg/dL Calcium (8.8-10.8) mg/dL Total Bilirubin (0.1-1.5) mg/dL AST (5-40) IU/L ALT (8-54) IU/L Alkaline Phosphatase (40-150) Total Protein (6.0-8.0) g/dL Albumin (3.5-5.0) g/dL Globulin (2.0-3.5) g/dL Albumin/Globulin Ratio (1.3-2.8) Amylase 49 (10-90) U/L Lipase (7-80) U/L HCG, Qual (NEG) Urine Color YELLOW Urine Appearance CLEAR Urine pH 6.0 (5.0-8.0) Ur Specific Kingsley 1.015 (1.001-1.035) Urine Protein NEGATIVE (NEGATIVE) mg/dL Urine Glucose (UA) NEGATIVE (NEGATIVE) mg/dL Urine Ketones NEGATIVE (NEGATIVE) mg/dL Urine Occult Blood NEGATIVE (NEGATIVE) Urine Nitrite NEGATIVE (NEGATIVE) Urine Bilirubin NEGATIVE (NEGATIVE) Urine Urobilinogen 0.2 (<2.0) EU/dL Ur Leukocyte Esterase SMALL (NEGATIVE) Urine RBC 0-1 (0-2/HPF) Urine WBC 4-6 (0-5/HPF) Ur Epithelial Cells FEW (NONE-FEW) Urine Bacteria FEW (NEGATIVE) Meds: Medications Generic Name Dose Route Start Last Admin Trade Name Freq PRN Reason Stop Dose Admin Sodium Chloride 10 ml 01/11/17 07:00 Saline Flush FLUSH ASDIRECTED PRN Keep Vein Open Sodium Chloride 2.5 ml 01/11/17 07:00 Saline Flush FLUSH ASDIRECTED PRN Keep Vein Open Discontinued Medications Generic Name Dose Route Start Last Admin Trade Name Aguila PRN Reason Stop Dose Admin Hydromorphone HCl 1 mg 01/11/17 07:05 01/11/17 07:28 Dilaudid IVPUSH 01/11/17 07:06 1 mg ONETIME ONE Administration Sodium Chloride 1,000 mls @ 999 mls/hr 01/11/17 07:05 01/11/17 07:19 Normal Saline IV 01/11/17 08:05 999 mls/hr STAT ONE Administration Ondansetron HCl 4 mg 01/11/17 06:49 01/11/17 06:54 Zofran IVPUSH 01/11/17 06:50 4 mg ONETIME ONE Administration Ondansetron HCl 4 mg 01/11/17 08:32 01/11/17 08:39 Zofran IVPUSH 01/11/17 08:33 4 mg ONETIME ONE Administration Pantoprazole Sodium 40 mg 01/11/17 07:05 01/11/17 07:31 Protonix Iv IVPUSH 01/11/17 07:06 40 mg .BOLUS ONE Administration Departure - Departure Time of Disposition: 09:31 Disposition: Home, Self-Care 01 Condition: Good Clinical Impression: Biliary colic - Discharge Information Referrals: PCP,None [Primary Care Provider] - Forms: ED Department Discharge Additional Instructions: The following information is given to patients seen in the emergency department who are being discharged to home. This information is to outline your options for follow-up care. We provide all patients seen in our emergency department with a follow-up referral. The need for follow-up, as well as the timing and circumstances, are variable depending upon the specifics of your emergency department visit. If you don't have a primary care physician on staff, we will provide you with a referral. We always advise you to contact your personal physician following an emergency department visit to inform them of the circumstance of the visit and for follow-up with them and/or the need for any referrals to a consulting specialist. The emergency department will also refer you to a specialist when appropriate. This referral assures that you have the opportunity for followup care with a specialist. All of these measure are taken in an effort to provide you with optimal care, which includes your followup. Under all circumstances we always encourage you to contact your private physician who remains a resource for coordinating your care. When calling for followup care, please make the office aware that this follow-up is from your recent emergency room visit. If for any reason you are refused follow-up, please contact the [facility] emergency department at and ask to speak to the emergency department charge nurse. [facility] Specialty Care-General Surgery Professional Building [address] [place] [address] [address] [place] [address] [facility] Primary care- Internal Medicine and Family [facility] [address] [place] [id number] Please use medications for pain and nausea that you have been prescribed as needed. Please eat a low-fat diet as we discussed and push hydration. Please keep your appointment in the surgery clinic--- it is scheduled for this January 13 at 2:[address] Sandoval. Please arrive at 2 PM, 15 minutes early for this appointment. return to ER as needed and as discussed. - My Orders Last 24 Hours: My Active Orders 01/11/17 07:00 Sodium Chloride 0.9% [Saline Flush] 10 ml FLUSH ASDIRECTED PRN Sodium Chloride 0.9% [Saline Flush] 2.5 ml FLUSH ASDIRECTED PRN Saline Lock Insert [OM.PC] Stat - Assessment/Plan Last 24 Hours: My Active Orders 01/11/17 07:00 Sodium Chloride 0.9% [Saline Flush] 10 ml FLUSH ASDIRECTED PRN Sodium Chloride 0.9% [Saline Flush] 2.5 ml FLUSH ASDIRECTED PRN Saline Lock Insert [OM.PC] Stat
[2017-01-11 07:21] LABS: CHLORIDE,CL 107 mmol/L (98-110); SODIUM,NA 140 mmol/L (136-146)
--- NOTE | 2017-01-11 08:37 | US ---
EXAMINATION: Right upper quadrant ultrasound HISTORY: Pain COMPARISON: CT dated 11/24/2016 TECHNIQUE: Grayscale and color Doppler images obtained of the right upper quadrant. FINDINGS: The visualized pancreas appears normal. The liver is normal in contour and echogenicity wi thout a focal hepatic mass. The common bile duct measures 4 to 5 mm. The gallbladder wall thickness measures 5 mm. Shadowing gallstones are noted, one of which is noted to be nonmobile within the neck . The sonographic Jim sign is reported positive. The right kidney measures 11 cm [id number] wit hout evidence of hydronephrosis. No abdominal ascites. IMPRESSION: 1. Cholelithiasis with gallbladder wall thickening and a positive sonographic Jim's sign suspici ous for acute cholecystitis.
[2017-01-11 11:36] VITALS: BP 105/59
== END 2017-01-11 08:48 | disposition home or self-care (01) ==
LOC: MW.ED 06:33
DX: K80.70 Calculus of gallbladder and bile duct without cholecystitis without obstruction (principal); Z98.890 Other specified postprocedural states; Z87.891 Personal history of nicotine dependence; E66.9 Obesity, unspecified; Z68.29 Body mass index [BMI] 29.0-29.9, adult
CPT/HCPCS: 36415; 76705; 80053; 81001; 82150; 83690; 84703; 85025; 96361; 96374; 96375; 96376; 99284; C9113; J1170; J2405; J7040

== ENCOUNTER 2017-01-12 04:52 | Emergency (ER) | payer MEDICAID ==
[2017-01-12] MEDS ORDERED: Sodium Chloride 0.9% 2.5 ML Syringe FLUSH PRN (05:14)
[2017-01-12] MEDS ORDERED: Sodium Chloride 0.9% 10 ML Syringe FLUSH PRN (05:14)
[2017-01-12] MEDS ORDERED: Sodium Chloride 0.9% 1,000 ML IV ONE (05:15)
[2017-01-12] MEDS ORDERED: Ketorolac 30 MG/ML SDV IVPUSH ONE (05:16)
--- NOTE | 2017-01-12 05:43 | EDM.PDOC ---
ED HPI GENERAL MEDICAL PROBLEM - General Chief Complaint: Abdominal Pain Stated Complaint: GALLBLADDER Time Seen by Provider: 01/12/17 04:55 Source of Information: Reports: Patient History Limitations: Reports: No Limitations - History of Present Illness INITIAL COMMENTS - FREE TEXT/NARRATIVE: HISTORY AND PHYSICAL: History of present illness: [21-year-old female diagnosed with gallstones weeks ago but did not follow-up as an outpatient seen yesterday morning with a complaint consistent with biliary colic now presents with worsening abdominal pain. Patient's workup yesterday showed unremarkable labs however ultrasound had a positive Jim's sign stones and wall thickening consistent with acute cholecystitis. As patient was nontoxic-appearing she was referred as an outpatient for follow-up tomorrow with Dr. Tony Sandoval in his office at 2:30 PM. Overnight tonight patient's pain worsened and she has intractable nausea and uncontrolled pain. No fevers chills sweats or shaking chills.] Review of systems: As per history of present illness and below otherwise all systems reviewed and negative. Past medical history: As per history of present illness and as reviewed below otherwise noncontributory. Surgical history: As per history of present illness and as reviewed below otherwise noncontributory. Social history: No reported history of drug or alcohol abuse. Family history: As per history of present illness and as reviewed below otherwise noncontributory. Physical exam: Alert 21-year-old female appears mildly uncomfortable no acute distress communicative cooperative and appropriate HEENT: Normocephalic, atraumatic, pupils normal and symmetrical, supple neck, no meningismus, normal color Lungs: Normal and symmetrical chest wall excursion bilateral with no tachypnea or increased work of breathing, grossly normal chest exam Heart: No tachycardia in triage Abdomen: Normal-appearing, nondistended, no visible mass or asymmetry, right upper quadrant tenderness no guarding or rebound positive bowel sounds no mass or megaly no skin changes Pelvis: Normal-appearing Genitourinary: Deferred Rectal exam: Deferred Extremities: Atraumatic, normal use and range of motion, no visible evidence of gross neurovascular compromise Neuro: Awake, alert, oriented. Normal and appropriate mental status. Cranial nerves grossly unremarkable. Motor function normal. Nonfocal neurologic exam. Diagnostics: [Ultrasound labs pending] Therapeutics: [IV fluids Toradol and Zofran given] Impression: [Right upper quadrant abdominal pain Biliary colic Gallstones ] Plan: [Signs and symptoms consistent with acute cholecystitis which was diagnosed yesterday morning. Patient now with intractable pain and nausea. She is nothing by mouth since midnight. Labs and ultrasound pending. Case discussed with Dr. Tony Sandoval surgeon with whom case was discussed yesterday morning and also with whom she is scheduled to follow-up tomorrow at 2:[address] Sandoval's aware the history and findings and agrees with the current workup and will provide emergency department consultation and evaluate the patient here.] 0715 patient stable with pain controlled. Dr. Tony Sandoval present in the emergency department evaluated patient. Labs unremarkable a patient remains hemodynamically stable and afebrile. Dr. Sandoval recommends no further workup or treatment indicated today and feels patient is appropriate for outpatient follow-up as scheduled tomorrow for reevaluation and to schedule outpatient cholecystectomy. Patient and significant other agree with outpatient follow-up and strict return precautions will be given. Definitive disposition and diagnosis as appropriate pending reevaluation and review of above. Epigastric Pain Score (Numeric/FACES): 8 - Related Data Allergies Allergy/AdvReac Type Severity Reaction Status Date / Time No Known Allergies Allergy Verified 01/11/17 06:42 Home Meds: Home Meds . [No Known Home Meds] 11/25/15 [History] Past Medical History HEENT History: Reports: None Cardiovascular History: Reports: None Respiratory History: Reports: None Gastrointestinal History: Reports: Cholelithiasis Genitourinary History: Reports: None [employer] LIB[employer]ARIAN History: Reports: , Spontaneous Other OB/BYN History: Ovarian cyst. Musculoskeletal History: Reports: None Neurological History: Reports: None Psychiatric History: Reports: Anxiety, Depression Endocrine/Metabolic History: Reports: Obesity/BMI 30+ Hematologic History: Reports: None Immunologic History: Reports: None Oncologic (Cancer) History: Reports: None Dermatologic History: Reports: None - Infectious Disease History Infectious Disease History: Reports: Mononucleosis - Past Surgical History Head Surgeries/Procedures: Reports: None HEENT Surgical History: Reports: Adenoidectomy, Oral Surgery, Tonsillectomy GI Surgical History: Reports: None Social & Family History - Family History Family Medical History: Noncontributory Respiratory: Reports: Asthma : Reports: Dialysis, UTI, Recurrent, Other (See Below) Other Family History: Kidney stones. OBGYN: Reports: , Recurrent Spontaneous , Other (See Below) Other OBGYN Family History: Ovarian cysts. Musculoskeletal: Reports: Other (See Below) Other Musculoskeletal Family History: Scoliosis. Neurological: Reports: Migraines Psychiatric: Reports: Depression Endocrine/Metabolic: Reports: Diabetes, type II Oncologic: Reports: Skin - Tobacco Use Smoking Status *Q: Current Every Day Smoker Years of Tobacco use: 6 Packs/Tins Daily: 0.5 Used Tobacco, but Quit: Yes Month Tobacco Last Used: January 2016 Second Hand Smoke Exposure: Yes - Caffeine Use Caffeine Use: Reports: None - Recreational Drug Use Recreational Drug Use: No ED ROS GENERAL - Review of Systems Review Of Systems: See Below (History of present illness) ED EXAM, GI/ABD - Physical Exam Exam: See Below (History of present illness) Course - Vital Signs Last Recorded V/S: Last Vital Signs Temp 36.8 C 01/12/17 05:01 Pulse 91 01/12/17 05:01 Resp 19 01/12/17 05:01 BP 119/75 01/12/17 05:01 Pulse Ox 99 01/12/17 05:01 - Orders/Labs/Meds Orders: Active Orders 24 hr Category Date Time Status Gallbladder [Abdomen Ltd] [US] Stat Exams 01/12/17 05:33 Ordered UA W/MICROSCOPIC [URIN] Stat Lab 01/12/17 05:14 Uncollected Sodium Chloride 0.9% [Saline Flush] Med 01/12/17 05:14 Active 10 ml FLUSH ASDIRECTED PRN Sodium Chloride 0.9% [Saline Flush] Med 01/12/17 05:14 Active 2.5 ml FLUSH ASDIRECTED PRN Peripheral IV Insertion Adult [OM.PC] Stat Oth 01/12/17 05:14 Ordered Medication Orders Sodium Chloride (Saline Flush) 10 ml FLUSH ASDIRECTED PRN PRN Reason: Keep Vein Open Sodium Chloride (Saline Flush) 2.5 ml FLUSH ASDIRECTED PRN PRN Reason: Keep Vein Open Labs: Laboratory Tests 01/12/17 01/12/17 Range/Units 05:38 05:38 WBC 7.10 (4.0-11.0) K/uL RBC 4.49 (4.30-5.90) M/uL Hgb 11.4 L (12.0-16.0) g/dL Hct 36.5 (36.0-46.0) % MCV 81.3 (80.0-98.0) fL MCH 25.4 L (27.0-32.0) pg MCHC 31.2 (31.0-37.0) g/dL RDW Std Deviation 43.0 (28.0-62.0) fl RDW Coeff of Manan 15 (11.0-15.0) % Plt Count 292 (150-400) K/uL MPV 9.30 (7.40-12.00) fL Neut % (Auto) 50.9 (48.0-80.0) % Lymph % (Auto) 37.9 (16.0-40.0) % [place] % (Auto) 6.6 (0.0-15.0) % Eos % (Auto) 4.2 (0.0-7.0) % Baso % (Auto) 0.4 (0.0-1.5) % Neut # (Auto) 3.6 (1.4-5.7) K/uL Lymph # (Auto) 2.7 H (0.6-2.4) K/uL [place] # (Auto) 0.5 (0.0-0.8) K/uL Eos # (Auto) 0.3 (0.0-0.7) K/uL Baso # (Auto) 0.0 (0.0-0.1) K/uL Nucleated RBC % 0.0 /100WBC Nucleated RBCs # 0 K/uL Sodium 141 (136-146) mmol/L Potassium 3.9 (3.5-5.1) mmol/L Chloride 107 (98-110) mmol/L Carbon Dioxide 25 (21-31) mmol/L BUN 12 (6.0-23.0) mg/dL Creatinine 0.8 (0.6-1.5) mg/dL Est Cr Clr Drug Dosing 112.21 mL/min Estimated GFR (MDRD) > 60.0 ml/min Glucose 87 (60-110) mg/dL Calcium 9.5 (8.8-10.8) mg/dL Total Bilirubin 0.2 (0.1-1.5) mg/dL AST 22 (5-40) IU/L ALT 29 (8-54) IU/L Alkaline Phosphatase 86 (40-150) Total Protein 6.8 (6.0-8.0) g/dL Albumin 4.0 (3.5-5.0) g/dL Globulin 2.8 (2.0-3.5) g/dL Albumin/Globulin Ratio 1.4 (1.3-2.8) Lipase 28 (7-80) U/L Meds: Medications Generic Name Dose Route Start Last Admin Trade Name Freq PRN Reason Stop Dose Admin Sodium Chloride 10 ml 01/12/17 05:14 Saline Flush FLUSH ASDIRECTED PRN Keep Vein Open Sodium Chloride 2.5 ml 01/12/17 05:14 Saline Flush FLUSH ASDIRECTED PRN Keep Vein Open Discontinued Medications Generic Name Dose Route Start Last Admin Trade Name Freq PRN Reason Stop Dose Admin Sodium Chloride 1,000 mls @ 999 mls/hr 01/12/17 05:15 01/12/17 05:42 Normal Saline IV 01/12/17 06:15 999 mls/hr STAT ONE Administration Ketorolac Tromethamine 30 mg 01/12/17 05:16 01/12/17 05:43 Toradol IVPUSH 01/12/17 05:17 30 mg ONETIME ONE Administration Departure - Departure Time of Disposition: 06:38 Disposition: Home, Self-Care 01 Condition: Fair Clinical Impression: Abdominal pain, Acute cholecystitis - Discharge Information Referrals: Yessica Pillai DO [Primary Care Provider] - Forms: ED Department Discharge Additional Instructions: You have cholecystitis. This means inflammation of your gallbladder is a result of blockage from a stone. Take ibuprofen 800 mg every 6 hours and [place] as needed for breakthrough pain. Use Zofran as needed for nausea. Rest and drink plenty of fluids. Follow-up with Dr. Sandoval as scheduled 2:30 PM tomorrow. Eat a low-fat diet. Return immediately for new severe or worsening symptoms including intractable pain, inability to tolerate by mouth intake, especially for fever in the setting of worsening pain. - My Orders Last 24 Hours: My Active Orders 01/12/17 05:14 UA W/MICROSCOPIC [URIN] Stat Sodium Chloride 0.9% [Saline Flush] 10 ml FLUSH ASDIRECTED PRN Sodium Chloride 0.9% [Saline Flush] 2.5 ml FLUSH ASDIRECTED PRN Peripheral IV Insertion Adult [OM.PC] Stat 01/12/17 05:33 Gallbladder [Abdomen Ltd] [US] Stat - Assessment/Plan Last 24 Hours: My Active Orders 01/12/17 05:14 UA W/MICROSCOPIC [URIN] Stat Sodium Chloride 0.9% [Saline Flush] 10 ml FLUSH ASDIRECTED PRN Sodium Chloride 0.9% [Saline Flush] 2.5 ml FLUSH ASDIRECTED PRN Peripheral IV Insertion Adult [OM.PC] Stat 01/12/17 05:33 Gallbladder [Abdomen Ltd] [US] Stat
[2017-01-12 06:06] LABS: CHLORIDE,CL 107 mmol/L (98-110); SODIUM,NA 141 mmol/L (136-146)
[2017-01-12 07:54] VITALS: BP 104/71
--- NOTE | 2017-01-12 08:54 | PCM.CONS ---
H&P History of Present Illness - General Date of Service: 01/12/17 Admit Problem/Dx: Recurrent RUQ pain w/ N/V Source of Information: Patient, Group Home Records - History of Present Illness Initial Comments - Free Text/Narative: Patient developed RUQ pain yesterday and was seen in ER. W/U revealed a stone in the neck of the gallbladder with normal WBC and LFT's. CBD 3-4 mm. No pericholecystic fluid. Came in again today with pain and N/V. Did not receive analgesics yesterday. Scheduled to come to [facility] on 01/[facility]. Duration of Symptoms: Reports: Week(s): Location: Reports: Abdomen Quality: Reports: Ache, Pressure, Same as Previous Episode Severity: Moderate Improves with: Reports: Rest Worsens with: Reports: None Associated Symptoms: Reports: Nausea/Vomiting. Denies: Cough, Fever/Chills Epigastric Pain Score (Numeric/FACES): 8 - Related Data Allergies/Adverse Reactions: Allergies Allergy/AdvReac Type Severity Reaction Status Date / Time No Known Allergies Allergy Verified 01/11/17 06:42 Home Medications: Home Meds . 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 Musculoskeletal History: Reports: None Neurological History: Reports: None Psychiatric History: Reports: Anxiety, Depression Endocrine/Metabolic History: Reports: Obesity/BMI 30+ Hematologic History: Reports: None Immunologic History: Reports: None Oncologic (Cancer) History: Reports: None Dermatologic History: Reports: None - Infectious Disease History Infectious Disease History: Reports: Mononucleosis - Past Surgical History Head Surgeries/Procedures: Reports: None HEENT Surgical History: Reports: Adenoidectomy, Oral Surgery, Tonsillectomy GI Surgical History: Reports: None Social & Family History - Family History Family Medical History: Noncontributory Respiratory: Reports: Asthma : Reports: Dialysis, UTI, Recurrent, Other (See Below) Other Family History: Kidney stones. OBGYN: Reports: , Recurrent Spontaneous , Other (See Below) Other OBGYN Family History: Ovarian cysts. Musculoskeletal: Reports: Other (See Below) Other Musculoskeletal Family History: Scoliosis. Neurological: Reports: Migraines Psychiatric: Reports: Depression Endocrine/Metabolic: Reports: Diabetes, type II Oncologic: Reports: Skin - Tobacco Use Smoking Status *Q: Current Every Day Smoker Years of Tobacco use: 6 Packs/Tins Daily: 0.5 Used Tobacco, but Quit: Yes Month Tobacco Last Used: January 2016 Second Hand Smoke Exposure: Yes - Caffeine Use Caffeine Use: Reports: None - Recreational Drug Use Recreational Drug Use: No H&P Review of Systems - Review of Systems: Review Of Systems: See Below General: Reports: Decreased Appetite. Denies: Fever, Chills HEENT: Reports: No Symptoms Pulmonary: Denies: Shortness of Breath Cardiovascular: Denies: Chest Pain Gastrointestinal: Reports: Abdominal Pain (RUQ), Decreased Appetite, Nausea, Vomiting Genitourinary: Reports: No Symptoms Musculoskeletal: Reports: No Symptoms Skin: Denies: Jaundice Psychiatric: Reports: No Symptoms Neurological: Reports: No Symptoms Hematologic/Lymphatic: Reports: No Symptoms Immunologic: Reports: No Symptoms Exam - Exam Exam: See Below - Vital Signs Vital Signs: Last Vital Signs Temp 97.9 F 01/12/17 07:51 Pulse 82 01/12/17 07:51 Resp 18 01/12/17 07:51 BP 104/71 01/12/17 07:51 Pulse Ox 99 01/12/17 07:51 Weight: 202 lb 13.204 oz - Exam General: Alert, Oriented, Cooperative, Mild Distress HEENT: Conjunctiva Clear, EOMI, Pupils Equal, Pupils Reactive. No: Scleral Icterus Neck: Supple, Trachea Midline Lungs: Clear to Auscultation, Normal Respiratory Effort Cardiovascular: Regular Rate, Regular Rhythm GI/Abdominal Exam: Normal Bowel Sounds, Soft, No Distention, No Mass. No: Guarding, Rigid, Rebound, Hepatomegaly (Female) Exam: Normal External Exam Back Exam: Normal Inspection Extremities: Normal Inspection Peripheral Pulses: 4+: Posterior Tibial (L), Posterior Tibial (R), Dorsalis Pedis (L), Dorsalis Pedis (R) Skin: Warm, Dry, Intact Neurological: Cranial Nerves Intact Neuro Extensive - Mental Status: Alert, Oriented x3, Normal Mood/Affect Psychiatric: Alert, Normal Affect, Normal Mood - Patient Data Lab Results Last 24 hrs: Laboratory Results - last 24 hr 01/12/17 01/12/17 Range/Units 05:38 05:38 WBC 7.10 (4.0-11.0) K/uL RBC 4.49 (4.30-5.90) M/uL Hgb 11.4 L (12.0-16.0) g/dL Hct 36.5 (36.0-46.0) % MCV 81.3 (80.0-98.0) fL MCH 25.4 L (27.0-32.0) pg MCHC 31.2 (31.0-37.0) g/dL RDW Std Deviation 43.0 (28.0-62.0) fl RDW Coeff of Manan 15 (11.0-15.0) % Plt Count 292 (150-400) K/uL MPV 9.30 (7.40-12.00) fL Neut % (Auto) 50.9 (48.0-80.0) % Lymph % (Auto) 37.9 (16.0-40.0) % [place] % (Auto) 6.6 (0.0-15.0) % Eos % (Auto) 4.2 (0.0-7.0) % Baso % (Auto) 0.4 (0.0-1.5) % Neut # (Auto) 3.6 (1.4-5.7) K/uL Lymph # (Auto) 2.7 H (0.6-2.4) K/uL [place] # (Auto) 0.5 (0.0-0.8) K/uL Eos # (Auto) 0.3 (0.0-0.7) K/uL Baso # (Auto) 0.0 (0.0-0.1) K/uL Nucleated RBC % 0.0 /100WBC Nucleated RBCs # 0 K/uL Sodium 141 (136-146) mmol/L Potassium 3.9 (3.5-5.1) mmol/L Chloride 107 (98-110) mmol/L Carbon Dioxide 25 (21-31) mmol/L BUN 12 (6.0-23.0) mg/dL Creatinine 0.8 (0.6-1.5) mg/dL Est Cr Clr Drug Dosing 112.21 mL/min Estimated GFR (MDRD) > 60.0 ml/min Glucose 87 (60-110) mg/dL Calcium 9.5 (8.8-10.8) mg/dL Total Bilirubin 0.2 (0.1-1.5) mg/dL AST 22 (5-40) IU/L ALT 29 (8-54) IU/L Alkaline Phosphatase 86 (40-150) Total Protein 6.8 (6.0-8.0) g/dL Albumin 4.0 (3.5-5.0) g/dL Globulin 2.8 (2.0-3.5) g/dL Albumin/Globulin Ratio 1.4 (1.3-2.8) Lipase 28 (7-80) U/L Result Diagrams: 01/12/17 05:38 01/12/17 05:38 Imaging Impressions Last 24 hrs: Repeat GBUS again shows a stone in the neck of the gallbladder. No pericholecystic fluid. Gallbladder wall is not thickened. CBD 3-4mm. Consult PN Assessment/Plan Procedures: Procedures MOLLY DNA DIR PROBE (08/28/16) COMPLETE CBC AUTOMATED (07/20/16) CULTURE SCREEN ONLY (09/11/16) EMERGENCY DEPT VISIT (11/25/15) EVAL AMNIOTIC FLUID PROTEIN (10/02/16) NON-STRESS TEST (10/05/16) [place] VAG DNA DIR PROBE (08/28/16) GLUCOSE TEST (07/20/16) TRICHOMONAS VAGIN DIR PROBE (08/28/16) URINE CULTURE/COLONY COUNT (08/28/16) X-RAY EXAM OF KNEE 3 (11/25/15) (1) Cholelithiasis SNOMED Code(s): 441307097 Code(s): K80.20 - CALCULUS OF GALLBLADDER W/O CHOLECYSTITIS W/O OBSTRUCTION Priority: High Qualifiers: Cholelithiasis location: gallbladder Cholecystitis presence: without cholecystitis Biliary obstruction: without biliary obstruction Qualified Code(s): K80.20 - Calculus of gallbladder without cholecystitis without obstruction Problem List Initiated/Reviewed/Updated: Yes Plan: Low fat diet. PO analgesics. Keep 01/13 Surgery Clinic appointment.
--- NOTE | 2017-01-12 12:00 | US ---
EXAM DATE: 01/12/17 PATIENT'S AGE: 21 Patient: MITZY RIVAS Facility: [facility] Site . Site : [id number] Study: US-Abdomen [id number]/8/2017 7:21:05 AM Ordering Physician: Hoang Lancaster Final Report: INDICATION: pain HISTORY: Abdominal pain. Abnormal prior ultrasound. COMPARISON: 01/11/2017. TECHNIQUE: Right upper quadrant ultrasound. FINDINGS: Pancreas is poorly seen, secondary to bowel gas. No peripancreatic fluid collection. Proximal abdominal aorta is normal in caliber. No solid hepatic mass. No intrahepatic biliary dilatation. No perihepatic ascites. Mild hepatic steatosis. Right kidney measures 12.0 cm in length. No hydronephrosis. No perinephric edema. Cholelithiasis with a positive sonographic Jim`s sign. No per pericholecystic fluid. The extrahepatic common duct measures 3 mm at the forrest hepatis. There is a stone in the neck of the gallbladder, seen best on image 39. IMPRESSION: 1. Cholelithiasis with a positive sonographic Jim`s sign. 2. Cholecystitis is suspected. The findings are similar to 01/11/2017. Dictated by Dean Guerra MD @ 01/12/2017 7:27:54 AM Dictated by: Dean Guerra MD @ 01/12/2017 07:28:01 Signed by: Dean Guerra MD @01/12/2017 7:28:01 AM (Electronic Signature) Report Signed by Proxy. DELMA
== END 2017-01-12 07:52 | disposition home or self-care (01) ==
LOC: MW.ED 04:52
DX: K80.00 Calculus of gallbladder with acute cholecystitis without obstruction (principal); E66.9 Obesity, unspecified; F17.210 Nicotine dependence, cigarettes, uncomplicated; Z98.890 Other specified postprocedural states; Z68.30 Body mass index [BMI] 30.0-30.9, adult
CPT/HCPCS: 36415; 76705; 80053; 83690; 85025; 96361; 96374; 99284; J1885; J7040